=== PATIENT | male | born 1995 ===

== ENCOUNTER 2018-12-27 15:26 | Emergency (ER) | payer SELFPAY ==
[~2018-12-27] VITALS: Ht 177.8 cm; Wt 90.7 kg
[2018-12-27] MEDS ORDERED: Crutch1 EACH MISC (16:59)
[2018-12-27] MEDS ORDERED: HYDR1TAB94 PO (17:01)
== END 2018-12-27 17:20 | disposition home or self-care (01) ==
LOC: ER 15:26
DX: M25.572 Pain in left ankle and joints of left foot (principal); F17.200 Nicotine dependence, unspecified, uncomplicated; Z88.8 Allergy status to other drugs, medicaments and biological substances; W22.8XXA Striking against or struck by other objects, initial encounter
CPT/HCPCS: 29515; 73610; 99283-25; A9270-GY